=== PATIENT | female | born 1965 | race Caucasian/White ===

== ENCOUNTER 2017-04-17 07:25 | Emergency (ER) | payer BC ==
[2017-04-17] MEDS ORDERED: TORAdol 30 mg Injection IV ONE (07:52)
[2017-04-17] MEDS ORDERED: Sodium Chloride 0.9% 1000 ML 1,000 ML IV STA (07:52)
[2017-04-17] MEDS ORDERED: Reglan 10 MG/2 ML IV ONE (07:52)
[2017-04-17] MEDS ORDERED: BENADRYL 50 MG/ML IV ONE (07:52)
--- NOTE | 2017-04-17 08:09 | ERPHSYRPT ---
- History of Present Illness Time Seen by Provider: 04/17/17 07:37 Source: patient, family () Patient Subjective Stated Complaint: states VERDUZCO starting on thursday that goes across forehead. achiness. nausea and vomiting when the head starts pounding Triage Nursing Assessment: alert and oriented x 3. nauseaw and vomiting with VERDUZCO. staes sore on palpation around eyes and forehead. Physician History: CC: headache Hx: 51 y/o healthy pt of Dr Samaniego. 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 She awoke Thursday (3 days ago) with headache, nausea, myalgias. Low grade fever 100.1. Nausea with some vomiting. No stiff neck. No rash. No known tick or mosquito exposures. No diarrhea. No chest or abd pain. No N/T/W. She has tried motrin but made her stomach upset. Symptoms moderate. Timing/Duration: day(s) (3) Head Pain Location: frontal Severity of Pain-Max: moderate Severity of Pain-Current: moderate Recent Head Trauma: no recent headache/trauma Allergies/Adverse Reactions: No Known Drug Allergies Allergy (Unverified 04/17/17 07:48) Immunizations Up to Date: Yes - Review of Systems Constitutional: Fever (100.1), Fatigue, Malaise Eyes: No Vision Changes Ears, Nose, & Throat: No Symptoms Respiratory: No Cough, No Dyspnea Cardiac: No Chest Pain Abdominal/Gastrointestinal: Nausea, Vomiting, No Abdominal Pain, No Diarrhea Genitourinary Symptoms: No Dysuria Skin: No Rash Neurological: Headache, No Dizziness, No Focal Weakness, No Parasthesia, No Seizure All Other Systems: Reviewed and Negative - Past Medical History Pertinent Past Medical History: No - Past Surgical History Past Surgical History: No - Social History Smoking Status: Never smoker Drug Use: none Patient Lives Alone: No - Nursing Vital Signs Nursing Vital Signs: Initial Vital Signs Temperature 98.5 F 04/17/17 07:31 Pulse Rate 84 04/17/17 07:31 Blood Pressure 164/104 04/17/17 07:31 O2 Sat by Pulse Oximetry 99 04/17/17 07:31 Pain Scale Pain Intensity 4 - Physical Exam General Appearance: alert Eye Exam: PERRL/EOMI Ears, Nose, Throat Exam: normal ENT inspection, moist mucous membranes Neck Exam: normal inspection, non-tender, supple, No meningismus, No Brudzinski , No Kernig's Respiratory Exam: normal breath sounds, lungs clear Cardiovascular Exam: regular rate/rhythm, No murmur Gastrointestinal/Abdominal Exam: soft, No tenderness, No distention Back Exam: normal inspection, normal range of motion Extremity Exam: normal inspection, normal range of motion Mental Status Exam: alert, oriented x 3, 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 Exam: normal hearing, normal speech, PERRL Motor/Sensory Exam: no motor deficit, no sensory deficit, no pronator drift Skin Exam: normal color, warm, dry, No rash SpO2 Interpretation: normal SpO2: 99 Oxygen Delivery: Room Air - Course Nursing assessment & vital signs reviewed: Yes Ordered Tests: Active Orders 24 hr Category Date Time Status IV Insertion STAT Care 04/17/17 07:52 Active CBC W DIFF Stat Lab 04/17/17 08:00 Completed CMP Stat Lab 04/17/17 08:00 Completed Erythrocyte Sedimentation Rate Stat Lab 04/17/17 08:00 Completed VENOUS BLOOD GAS Urgent Lab 04/17/17 08:00 Completed Medication Summary Discontinued Medications Generic Name Dose Route Start Last Admin Trade Name Freq PRN Reason Stop Dose Admin Diphenhydramine HCl 25 mg 04/17/17 07:52 04/17/17 08:21 Benadryl 50 Mg/Ml IV 04/17/17 07:53 25 mg STAT ONE Administration Diphenhydramine HCl Confirm 04/17/17 08:15 Benadryl 50 Mg/Ml Administered 04/17/17 08:16 Dose 50 mg .ROUTE .STK-MED ONE Sodium Chloride 1,000 mls @ 999 mls/hr 04/17/17 07:52 04/17/17 08:19 Sodium Chloride 0.9% 1000 Ml IV 04/17/17 08:52 999 mls/hr .Q1H1M STA Administration Sodium Chloride Confirm 04/17/17 08:15 Sodium Chloride 0.9% 1000 Ml Administered 04/17/17 08:16 Dose 1,000 mls @ ud .ROUTE .STK-MED ONE Ketorolac Tromethamine 30 mg 04/17/17 07:52 04/17/17 08:21 Toradol 30 Mg Injection IV 04/17/17 07:53 30 mg STAT ONE Administration Ketorolac Tromethamine Confirm 04/17/17 08:14 Toradol 30 Mg Injection Administered 04/17/17 08:15 Dose 30 mg .ROUTE .STK-MED ONE Metoclopramide HCl 10 mg 04/17/17 07:52 04/17/17 08:22 Reglan 10 Mg/2 Ml IV 04/17/17 07:53 10 mg STAT ONE Administration Metoclopramide HCl Confirm 04/17/17 08:15 Reglan 10 Mg/2 Ml Administered 04/17/17 08:16 Dose 10 mg .ROUTE .STK-MED ONE Ondansetron HCl 4 mg 04/17/17 09:07 04/17/17 09:12 Zofran 4 Mg/2 Ml Vial IV 04/17/17 09:08 4 mg STAT ONE Administration Ondansetron HCl Confirm 04/17/17 09:10 Zofran 4 Mg/2 Ml Vial Administered 04/17/17 09:11 Dose 4 mg .ROUTE .STK-MED ONE Lab/Rad Data: Laboratory Result Diagrams 04/17/17 08:00 04/17/17 08:00 Laboratory Results 04/17/17 04/17/17 04/17/17 Range/Units 08:00 08:00 08:00 WBC 8.3 (4.0-10.5) K/mm3 RBC 4.81 (4.1-5.4) M/mm3 Hgb 14.4 (12.0-16.0) gm/dl Hct 43.6 (35-47) % MCV 90.6 (78-100) fl MCH 29.9 (26-32) pg MCHC 33.0 (32-36) g/dl RDW 13.3 (11.5-14.0) % Plt Count 232 (150-450) K/mm3 MPV 10.0 H (6-9.5) fl Gran % 71.0 H (36.0-66.0) % Lymphocytes % 19.1 L (24.0-44.0) % Monocytes % 8.7 (0.0-12.0) % Eosinophils % 1.0 (0.00-5.0) % Basophils % 0.2 (0.0-0.4) % Basophils # 0.02 (0-0.4) ESR 18 (0-20) mm/hr VBG pH 7.43 H (7.32-7.42) VBG pCO2 at Pat Temp 41 L (42-55) mm/Hg VBG pO2 at Pat Temp 44 H (25-40) mm/Hg VBG HCO3 27.2 (22-28) meq/L VBG O2 Sat (Emani) 85.5 L (95-100) VBG Base Excess 2.6 H (-2.0-2.0) VBG Hemoglobin 15.0 VBG Carboxyhemoglobin 2.1 (0.0-6.9) % T HGB POC Potassium 3.7 (3.5-5.1) Sodium 133 L (136-145) mEq/L Potassium 3.6 (3.5-5.1) mEq/L Chloride 99 (98-107) mEq/L Carbon Dioxide 25.8 (21-32) mEq/L Anion Gap 11.8 (5-15) MEQ/L BUN 11 (9-20) mg/dL Creatinine 0.91 (0.55-1.30) mg/dl Estimated GFR > 60 ML/MIN Glucose 99 (70-110) MG/DL Calcium 9.6 (8.5-10.1) mg/dL Total Bilirubin 0.60 (0.2-1.0) mg/dL AST 14 L (15-37) U/L ALT 37 (12-78) U/L Alkaline Phosphatase 67 (46-116) U/L Serum Total Protein 8.3 H (6.4-8.2) gm/dL Albumin 4.0 (3.4-5.0) g/dL - Progress Progress Note: 04/17/17 08:10 Possibly viral syndrome. Not toxic appearing. Will check basic labs and treat headache. CT does not seem indicated at this time and pt and agree. 04/17/17 09:18 The headache is better. Still some nausea. Will release with instructions. Advised she have Na and BP rechecked. Counseled pt/family regarding: lab results, diagnosis, need for follow-up - Departure Time of Disposition: 09:19 Departure Disposition: Home Clinical Impression: Hyponatremia Headache Qualifiers: Headache type: unspecified Headache chronicity pattern: acute headache Intractability: not intractable Qualified Code(s): R51 - Headache Condition: Stable Critical Care Time: No Referrals: JENNIFER SAMANIEGO [Primary Care Provider] - Instructions: Headache Additional Instructions: HEADACHE 1. After discharge from the emergency department, you should rest at home in a cool, dark, quiet place for 12-24 hours. 2. If any of the following signs or symptoms are noticed, you should be re- evaluated right away: A. Visual changes B. Stiff Neck C. Change in quality or location of pain D. Fever E. Recurrent vomiting 3. If pain medications were prescribed or given, they may cause drowsiness. See Dr Samaniego Thursday 12:00. Return for confusion, rash, stiff neck, recurrent vomiting or concerns. Ibuprofen as directed if needed. Rx zofran for nausea. No driving today and stay with family. Prescriptions: Ondansetron [Zofran Odt] 4 mg PO Q6HPRN PRN #10 tab.rapdis PRN Reason: Nausea/Vomiting
[2017-04-17 08:12] LABS: BASOPHIL % 0.2 % (0.0-0.4); Lymphocytes % 19.1 % (24.0-44.0); Mean Cell Volume 90.6 fl (78-100); Mean Corpuscular Hemoglobin 29.9 pg (26-32); Monocytes % 8.7 % (0.0-12.0); Platelet Count 232 K/mm3 (150-450); Red Blood Count 4.81 M/mm3 (4.1-5.4); Red Cell Distribution Width 13.3 % (11.5-14.0); White Blood Count 8.3 K/mm3 (4.0-10.5)
[2017-04-17 08:14] LABS: VBG BASE EXCESS 2.6 (-2.0-2.0); VBG CARBOXYHEMOGLOBIN 2.1 % T HGB (0.0-6.9); VBG HCO3- 27.2 meq/L (22-28); VBG O2 SATURATION 85.5 (95-100); VBG POTASSIUM 3.7 (3.5-5.1); VBG pH 7.43 (7.32-7.42)
[2017-04-17] MEDS ORDERED: TORAdol 30 mg Injection ONE (08:14)
[2017-04-17] MEDS ORDERED: BENADRYL 50 MG/ML ONE (08:15)
[2017-04-17] MEDS ORDERED: Reglan 10 MG/2 ML ONE (08:15)
[2017-04-17] MEDS ORDERED: Sodium Chloride 0.9% 1000 ML 1,000 ML ONE (08:15)
[2017-04-17 08:41] LABS: Erythrocyte Sedimentation Rate 18 mm/hr (0-20)
[2017-04-17 08:46] LABS: ALKALINE PHOSPHATASE 67 U/L (46-116); ANION GAP 11.8 MEQ/L (5-15); BLOOD UREA NITROGEN 11 mg/dL (9-20); CHLORIDE 99 mEq/L (98-107); Carbon Dioxide 25.8 mEq/L (21-32); Glucose 99 MG/DL (70-110); Potassium 3.6 mEq/L (3.5-5.1); SGOT/AST 14 U/L (15-37); SGPT/ALT 37 U/L (12-78); SODIUM 133 mEq/L (136-145); Total Protein 8.3 gm/dL (6.4-8.2)
[2017-04-17 09:05] VITALS: BP 163/96; PULSE 73
[2017-04-17] MEDS ORDERED: Zofran 4 MG/2 ML VIAL IV ONE (09:07)
[2017-04-17] MEDS ORDERED: Zofran 4 MG/2 ML VIAL ONE (09:10)
[2017-04-17 09:24] VITALS: O2SAT 99
== END 2017-04-17 09:40 | disposition home or self-care (01) ==
LOC: ED 07:25
DX: E87.1 Hypo-osmolality and hyponatremia (principal); R51 Headache; R11.2 Nausea with vomiting, unspecified; M79.1 Myalgia; R50.9 Fever, unspecified; R53.83 Other fatigue
CPT/HCPCS: 36000; 36415; 80053; 82805; 85025; 85652; 96360; 96374; 96375; 99284; J1200; J1885; J2405

== ENCOUNTER 2017-04-18 15:03 | Emergency (ER) | payer BC ==
[2017-04-18] MEDS ORDERED: BENADRYL 50 MG/ML IV ONE (15:29)
[2017-04-18] MEDS ORDERED: Reglan 10 MG/2 ML IV ONE (15:29)
[2017-04-18] MEDS ORDERED: Sodium Chloride 0.9% 1000 ML 1,000 ML IV STA (15:29)
[2017-04-18] MEDS ORDERED: TORAdol 30 mg Injection IV ONE (15:29)
[2017-04-18] MEDS ORDERED: TORAdol 30 mg Injection ONE (15:38)
[2017-04-18] MEDS ORDERED: Sodium Chloride 0.9% 1000 ML 1,000 ML ONE (15:38)
[2017-04-18] MEDS ORDERED: Reglan 10 MG/2 ML ONE (15:38)
[2017-04-18] MEDS ORDERED: BENADRYL 50 MG/ML ONE (15:38)
--- NOTE | 2017-04-18 15:39 | ERPHSYRPT ---
- History of Present Illness Time Seen by Provider: 04/18/17 15:06 Source: patient, family () Patient Subjective Stated Complaint: started last night at 1900. usually gets worse at night.. pain across forehead. woke her up from sleep last night. nausea but no vomiting. pain lwevel last night @10 last nighgt. now at 3-4 pain increases when turning head either direction Triage Nursing Assessment: alert and oriented. stable ambulation. pain across forhead. no nausea at present. able to eat breakfast. 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 She was in ER yesterday. Throbbing in nature. Low grade fever 100 once. Highest since yest was 99. She has had some chills. No neck pain or stiffness. Was better yesterday after meds in ER. In the evening the headache returned. It is frontal. No sore throat but was exposed to strep. No rash. No V/D. Severity of Pain-Max: severe Severity of Pain-Current: moderate Allergies/Adverse Reactions: No Known Drug Allergies Allergy (Unverified 04/17/17 07:48) Hx Influenza Vaccination/Date Given: No Hx Pneumococcal Vaccination/Date Given: No - Review of Systems Constitutional: Fever (100), Chills, Fatigue, Malaise, Weakness Eyes: No Vision Changes Ears, Nose, & Throat: No Symptoms, No Throat Pain Respiratory: No Cough, No Dyspnea Cardiac: No Chest Pain Abdominal/Gastrointestinal: No Abdominal Pain, No Vomiting, No Diarrhea Genitourinary Symptoms: No Dysuria Musculoskeletal: No Back Pain, No Neck Pain, No Fall, No Injury, No Joint Pain Skin: No Rash Neurological: Headache, No Focal Weakness, No Gait Changes, No Parasthesia All Other Systems: Reviewed and Negative - Past Medical History Pertinent Past Medical History: Yes Neurological History: No Pertinent History ENT History: No Pertinent History Endocrine Medical History: No Pertinent History GI Medical History: Esophageal Disorder - Past Surgical History Past Surgical History: Yes Female Surgical History: Tubal Ligation - Social History Smoking Status: Never smoker Exposure to second hand smoke: No Drug Use: none Patient Lives Alone: No - Nursing Vital Signs Nursing Vital Signs: Initial Vital Signs Temperature 97.9 F 04/18/17 15:09 Pulse Rate 79 04/18/17 15:09 Respiratory Rate 18 04/18/17 15:09 Blood Pressure 164/100 04/18/17 15:09 O2 Sat by Pulse Oximetry 98 04/18/17 15:09 Pain Scale Pain Intensity 0 - Physical Exam General Appearance: alert Eye Exam: PERRL/EOMI Ears, Nose, Throat Exam: moist mucous membranes Neck Exam: normal inspection, non-tender, supple, No meningismus Respiratory Exam: normal breath sounds, lungs clear Cardiovascular Exam: regular rate/rhythm Gastrointestinal/Abdominal Exam: soft, No tenderness, No distention Back Exam: normal inspection, normal range of motion Extremity Exam: normal inspection, normal range of motion Mental Status Exam: alert, oriented x 3, cooperative, other (smiling and conversant) Coordination/Gait Exam: normal gait Motor/Sensory Exam: no motor deficit, no sensory deficit Skin Exam: normal color, warm, dry, No rash SpO2 Interpretation: normal SpO2: 98 Oxygen Delivery: Room Air - Course Nursing assessment & vital signs reviewed: Yes - CT Exams head CT Interpretation: Negative, Tele-radiologist Report Ordered Tests: Active Orders 24 hr Category Date Time Status IV Insertion STAT Care 04/18/17 15:29 Active HEAD WITHOUT CONTRAST [CT] Stat Exams 04/18/17 15:30 Taken BMP Stat Lab 04/18/17 16:06 Completed CBC W DIFF Stat Lab 04/18/17 16:06 Completed Medication Summary Discontinued Medications Generic Name Dose Route Start Last Admin Trade Name Titusq PRN Reason Stop Dose Admin Dexamethasone Sodium Phosphate 10 mg 04/18/17 17:00 04/18/17 17:05 Decadron 10mg Inj. IV 04/18/17 17:01 10 mg STAT ONE Administration Dexamethasone Sodium Phosphate Confirm 04/18/17 17:04 Decadron 10mg Inj. Administered 04/18/17 17:05 Dose 10 mg .ROUTE .STK-MED ONE Diphenhydramine HCl 25 mg 04/18/17 15:29 04/18/17 15:55 Benadryl 50 Mg/Ml IV 04/18/17 15:30 25 mg STAT ONE Administration Diphenhydramine HCl Confirm 04/18/17 15:38 Benadryl 50 Mg/Ml Administered 04/18/17 15:39 Dose 50 mg .ROUTE .STK-MED ONE Sodium Chloride 1,000 mls @ 999 mls/hr 04/18/17 15:29 04/18/17 15:55 Sodium Chloride 0.9% 1000 Ml IV 04/18/17 16:29 999 mls/hr .Q1H1M STA Administration Sodium Chloride Confirm 04/18/17 15:38 Sodium Chloride 0.9% 1000 Ml Administered 04/18/17 15:39 Dose 1,000 mls @ ud .ROUTE .STK-MED ONE Ketorolac Tromethamine 30 mg 04/18/17 15:29 04/18/17 15:55 Toradol 30 Mg Injection IV 04/18/17 15:30 30 mg STAT ONE Administration Ketorolac Tromethamine Confirm 04/18/17 15:38 Toradol 30 Mg Injection Administered 04/18/17 15:39 Dose 30 mg .ROUTE .STK-MED ONE Metoclopramide HCl 10 mg 04/18/17 15:29 04/18/17 15:55 Reglan 10 Mg/2 Ml IV 04/18/17 15:30 10 mg STAT ONE Administration Metoclopramide HCl Confirm 04/18/17 15:38 Reglan 10 Mg/2 Ml Administered 04/18/17 15:39 Dose 10 mg .ROUTE .STK-MED ONE Lab/Rad Data: Laboratory Result Diagrams 04/18/17 16:06 04/18/17 16:06 Laboratory Results 04/18/17 04/18/17 Range/Units 16:06 16:06 WBC 8.3 (4.0-10.5) K/mm3 RBC 4.72 (4.1-5.4) M/mm3 Hgb 14.1 (12.0-16.0) gm/dl Hct 43.1 (35-47) % MCV 91.3 (78-100) fl MCH 29.9 (26-32) pg MCHC 32.7 (32-36) g/dl RDW 13.3 (11.5-14.0) % Plt Count 233 (150-450) K/mm3 MPV 10.0 H (6-9.5) fl Gran % 75.3 H (36.0-66.0) % Lymphocytes % 14.8 L (24.0-44.0) % Monocytes % 8.3 (0.0-12.0) % Eosinophils % 1.2 (0.00-5.0) % Basophils % 0.4 (0.0-0.4) % Basophils # 0.03 (0-0.4) Sodium 138 (136-145) mEq/L Potassium 3.5 (3.5-5.1) mEq/L Chloride 99 (98-107) mEq/L Carbon Dioxide 29.6 (21-32) mEq/L Anion Gap 12.7 (5-15) MEQ/L BUN 11 (9-20) mg/dL Creatinine 1.09 (0.55-1.30) mg/dl Estimated GFR 56 ML/MIN Glucose 110 (70-110) MG/DL Calcium 9.4 (8.5-10.1) mg/dL - Progress Progress Note: 04/18/17 17:31 She is improved with meds. Nontoxic appearing. Afebrile without nuchal rigidity. Dr Samaniego saw pt in ER. Will release with Rx for reglan. Instr given. Counseled pt/family regarding: lab results, diagnosis, need for follow-up, rad results - Departure Time of Disposition: 17:33 Departure Disposition: Home Clinical Impression: Headache Condition: Stable Critical Care Time: No Referrals: JENNIFER SAMANIEGO [Primary Care Provider] - Instructions: Headache Additional Instructions: HEADACHE 1. After discharge from the emergency department, you should rest at home in a cool, dark, quiet place for 12-24 hours. 2. If any of the following signs or symptoms are noticed, you should be re- evaluated right away: A. Visual changes B. Stiff Neck C. Change in quality or location of pain D. Fever E. Recurrent vomiting 3. If pain medications were prescribed or given, they may cause drowsiness. Rx reglan if needed for headache/nasusea- take with a benadryl tablet. Call Dr Samaniego for problems or concerns. No driving and stay with family. Prescriptions: Metoclopramide HCl 10 mg [Reglan 10 MG] 10 mg PO Q6HPRN PRN #5 tablet PRN Reason: headache/nausea
[2017-04-18 16:12] LABS: BASOPHIL % 0.4 % (0.0-0.4); Eosinophil % 1.2 % (0.00-5.0); Granulocytes % 75.3 % (36.0-66.0); Lymphocytes % 14.8 % (24.0-44.0); Mean Cell Volume 91.3 fl (78-100); Mean Corpuscular Hemoglobin 29.9 pg (26-32); Monocytes % 8.3 % (0.0-12.0); Platelet Count 233 K/mm3 (150-450); Red Blood Count 4.72 M/mm3 (4.1-5.4); Red Cell Distribution Width 13.3 % (11.5-14.0); White Blood Count 8.3 K/mm3 (4.0-10.5)
[2017-04-18 16:24] LABS: ANION GAP 12.7 MEQ/L (5-15); Carbon Dioxide 29.6 mEq/L (21-32); Potassium 3.5 mEq/L (3.5-5.1)
[2017-04-18] MEDS ORDERED: DECADRON 10MG INJ. IV ONE (17:00)
[2017-04-18] MEDS ORDERED: DECADRON 10MG INJ. ONE (17:04)
[2017-04-18 17:47] VITALS: BP 138/80; PULSE 78; O2SAT 99
--- NOTE | 2017-04-18 22:33 | XRAY ---
Indication: Headache, vomiting, and low-grade fever. Multiple contiguous axial images obtained through the head without contrast. Comparison: None Normal appearing brain parenchyma, ventricles, and bony calvarium. Visualized paranasal sinuses and mastoid air cells are clear. Impression: Normal CT head without contrast exam. Comment: Preliminary interpretation was made by [facility]. No discrepancy. CTDI 68.51
== END 2017-04-18 17:47 | disposition home or self-care (01) ==
LOC: ED 15:03
DX: R51 Headache (principal)
CPT/HCPCS: 36000; 36415; 70450; 80048; 85025; 96360; 96374; 96375; 99284; J1100; J1200; J1885

== ENCOUNTER 2017-09-23 06:05 | Day surgery (SDC) | payer BC ==
[2017-09-23] MEDS ORDERED: DIPRIVAN 200 MG/20 ML IV ONE (06:06)
[2017-09-23] MEDS ORDERED: Versed 2 MG/2 ML Injection IV ONE ×2 (06:06→06:53)
[2017-09-23] MEDS ORDERED: Lactated Ringers 1,000 ML IV SCH (06:30)
[2017-09-23 09:25] VITALS: O2SAT 99
[2017-09-23 09:44] VITALS: BP 137/96; PULSE 61
--- NOTE | 2017-09-23 12:40 | OP ---
SURGERY DATE/TIME: 09/23/2017826 PREOPERATIVE DIAGNOSIS: Screening colonoscopy. POSTOPERATIVE DIAGNOSIS: Descending colon polyp. PROCEDURE: Colonoscopy. SURGEON: Schuyler Lyle M.D. ANESTHESIA: MAC by Adama Ellis CRNA. SPECIMENS: Hot forceps polypectomy from descending colon. ESTIMATED BLOOD LOSS: Minimal. DESCRIPTION OF PROCEDURE: After informed written consent was obtained, the patient was taken to the endoscopy suite. She underwent monitored anesthesia and a digital rectal exam showed normal sphincter tone and no internal lesions. The scope was inserted into the rectum and sequentially the entire colonic mucosa was traversed. The level of cecum was reached and verified with direct visualization of ileocecal valve. Upon withdrawal careful mucosal inspection revealed no abnormalities until I reached the level of the descending colon near the splenic flexure. There was a small sessile polyp grasped with forceps and cautery used to cauterize the base. The entire lesion was removed with good hemostasis. Upon further withdrawal no other abnormalities were noted. Prior to withdrawal retroflexion was performed and showed mild internal lesions. The scope was removed and the patient was transferred to the recovery room in excellent condition.
== END 2017-09-23 10:15 | disposition home or self-care (01) ==
LOC: SDC 06:05
PROVIDERS: ATTEND Family Medicine
PROC: 0DBM8ZX Excision of Descending Colon, Via Natural or Artificial Opening Endoscopic, Diagnostic (ICD-10-PCS; principal; 2017-09-23)
DX: Z12.11 Encounter for screening for malignant neoplasm of colon (principal); K63.5 Polyp of colon
CPT/HCPCS: 00812; 88305; J2250; J2704

== ENCOUNTER 2022-05-16 11:50 | Emergency (ER) | payer OTHER ==
--- NOTE | 2022-05-16 12:01 | ERPHSYRPT ---
- History of Present Illness Time Seen by Provider: 05/16/22 11:57 Historian: patient Physician History: Patient is a 56-year-old female who presents with a complaint of pain which starts at the back of the neck at the base and radiates into the right arm into the anterior chest and into the back. This started approximately 10 days ago she did go to [facility] [place] and was told she had a pinched nerve in her neck. She had orders for numerous imaging studies but her pain seem w orse today and she called her primary care and told them she was coming to the ER for treatment. Timing/Duration: day(s) (10) Activities at Onset: none Quality: stabbing, throbbing Location: substernal Chest Pain Radiation: neck, arm, back Severity of Pain-Max: severe Severity of Pain-Current: moderate Modifying Factors: Improves With: movement Associated Symptoms: hurts to breathe Prior Chest Pain/Cardiac Workup: no prior cardiac workup Nitro Today/Relief: no nitro taken today Aspirin Treatment Today: no aspirin today Allergies/Adverse Reactions: No Known Drug Allergies Allergy (Verified 09/23/17 07:02) Home Medications: Acetaminophen [Tylenol Extra Strength] 500 mg PO UD PRN 08/18/17 [History] Hx Influenza Vaccination/Date Given: No Hx Pneumococcal Vaccination/Date Given: No - Review of Systems Constitutional: No Fever, No Chills Eyes: No Symptoms Ears, Nose, & Throat: No Symptoms Respiratory: No Cough, No Dyspnea Cardiac: Chest Pain, No Edema, No Syncope Abdominal/Gastrointestinal: No Abdominal Pain, No Nausea, No Vomiting, No Diarrhea Genitourinary Symptoms: No Dysuria Musculoskeletal: Back Pain, Neck Pain, Joint Pain Skin: No Rash Neurological: No Dizziness, No Focal Weakness, No Sensory Changes Psychological: No Symptoms Endocrine: No Symptoms All Other Systems: Reviewed and Negative - Past Medical History Pertinent Past Medical History: Yes Neurological History: No Pertinent History ENT History: No Pertinent History Cardiac History: No Pertinent History Respiratory History: No Pertinent History Endocrine Medical History: No Pertinent History Musculoskeletal History: No Pertinent History GI Medical History: Hernia History: No Pertinent History Psycho-Social History: No Pertinent History Female Reproductive Disorders: No Pertinent History - Past Surgical History Past Surgical History: Yes Neuro Surgical History: No Pertinent History Cardiac: No Pertinent History Respiratory: No Pertinent History Gastrointestinal: No Pertinent History Genitourinary: No Pertinent History Musculoskeletal: No Pertinent History Female Surgical History: Tubal Ligation Other Surgical History: hx of EGD with dilatation - Social History Smoking Status: Former smoker Exposure to second hand smoke: No Drug Use: none Patient Lives Alone: No - Nursing Vital Signs Nursing Vital Signs: Initial Vital Signs Temperature 97.9 F 05/16/22 11:54 Pulse Rate 89 05/16/22 11:54 Respiratory Rate 18 05/16/22 11:54 Blood Pressure 174/136 05/16/22 11:54 Pain Scale Pain Intensity 0 - Physical Exam General Appearance: moderate distress, alert Eye Exam: PERRL/EOMI, eyes nml inspection Ears, Nose, Throat Exam: normal ENT inspection, moist mucous membranes Neck Exam: normal inspection, non-tender, supple, full range of motion Respiratory Exam: normal breath sounds, chest tenderness, lungs clear, No respiratory distress Cardiovascular Exam: regular rate/rhythm, normal heart sounds Gastrointestinal/Abdomen Exam: soft, No tenderness, No mass Back Exam: normal inspection, No CVA tenderness, No vertebral tenderness Extremity Exam: normal inspection, normal range of motion Neurologic Exam: alert, oriented x 3, cooperative, normal mood/affect, sensation nml, No motor deficits Skin Exam: normal color, warm, dry SpO2 Interpretation: normal SpO2: 99 O2 Delivery: Room Air - Course Nursing assessment & vital signs reviewed: Yes EKG Interpreted by Me: RATE (72), Sinus Rhythm, NORMAL AXIS, Right Bundle Branch Block, Non-specific ST Changes - CT Exams Cervical Spine CT Interpretation: Other (Degenerative changes at C5-6.) Chest CT Interpretation: Other (CT of the chest with contrast essentially negative) Ordered Tests: Active Orders 24 hr Category Date Time Status Can Operator STAT Care 05/16/22 12:05 Active EKG-ER Only STAT Care 05/16/22 12:04 Active IV Insertion STAT Care 05/16/22 12:04 Active CERVICAL SPINE WO CONTRAST [CT] Stat Exams 05/16/22 12:04 Completed CHEST WITH CONTRAST [CT] Stat Exams 05/16/22 12:03 Completed CBC W DIFF Stat Lab 05/16/22 12:00 Completed CK-Creatinine Phosphokinase Stat Lab 05/16/22 12:00 Completed CMP Stat Lab 05/16/22 12:00 Completed D-DIMER QUANTITATIVE Stat Lab 05/16/22 12:00 Completed NT PRO BNP Stat Lab 05/16/22 12:00 Completed PROTIME WITH INR Stat Lab 05/16/22 12:00 Completed PTT Stat Lab 05/16/22 12:00 Completed TROPONIN Q4H Lab 05/16/22 12:00 Completed TROPONIN Q4H Lab 05/16/22 16:15 Ordered TROPONIN Q4H Lab 05/16/22 20:15 Ordered Medication Summary Discontinued Medications Generic Name Dose Route Start Last Admin Trade Name Sarita PRN Reason Stop Dose Admin Fentanyl Citrate 75 mcg 05/16/22 12:04 05/16/22 12:36 Fentanyl Citrate 100 Mcg/2 Ml* Vial IV 05/16/22 12:05 75 mcg STAT ONE Administration Fentanyl Citrate Confirm 05/16/22 12:22 Fentanyl Citrate 100 Mcg/2 Ml* Vial Administered 05/16/22 12:23 Dose 100 mcg .ROUTE .STK-MED ONE Sodium Chloride 1,000 mls @ 999 mls/hr 05/16/22 12:04 05/16/22 13:38 Sodium Chloride 0.9% 1000 Ml IV 05/16/22 13:04 Infused .Q1H1M STA Infusion Sodium Chloride Confirm 05/16/22 12:22 Sodium Chloride 0.9% 1000 Ml Administered 05/16/22 12:23 Dose 1,000 mls @ ud .ROUTE .STK-MED ONE Ondansetron HCl 4 mg 05/16/22 12:04 05/16/22 12:33 Ondansetron Hcl 4 Mg/2 Ml Vial IV 05/16/22 12:05 4 mg STAT ONE Administration Ondansetron HCl Confirm 05/16/22 12:22 Ondansetron Hcl 4 Mg/2 Ml Vial Administered 05/16/22 12:23 Dose 4 mg .ROUTE .STK-MED ONE Lab/Rad Data: Laboratory Result Diagrams 05/16/22 12:00 05/16/22 12:00 Laboratory Results 05/16/22 05/16/22 05/16/22 Range/Units 12:00 12:00 12:00 WBC (4.0-10.5) x10^3/uL RBC (4.1-5.4) x10^6/uL Hgb (12.0-16.0) g/dL Hct (35-47) % MCV (78-100) fL MCH (26-32) pg MCHC (32-36) g/dL RDW (11.5-14.0) % Plt Count (150-450) x10^3/uL MPV (7.5-11.0) fL Gran % (36.0-66.0) % Immature Gran % (Auto) (0.00-0.4) % Nucleat RBC Rel Count (0.00-0.1) % Eos # (Auto) (0-0.5) x10^3/uL Immature Gran # (Auto) (0.00-0.03) x10^3u/L Absolute Lymphs (auto) (1.0-4.6) x10^3/uL Absolute Monos (auto) (0.0-1.3) x10^3/uL Absolute Nucleated RBC (0.00-0.01) x10^3u/L Lymphocytes % (24.0-44.0) % Monocytes % (0.0-12.0) % Eosinophils % (0.00-5.0) % Basophils % (0.0-0.4) % Absolute Granulocytes (1.4-6.9) x10^3/uL Basophils # (0-0.4) x10^3/uL PT 10.9 (9.4-12.5) SECONDS INR 1.03 (0.8-3.0) APTT 27.6 (25.1-36.5) SECONDS D-Dimer 0.38 (0.0-0.50) mg/L Sodium 139 (137-145) mmol/L Potassium 4.2 (3.5-5.1) mmol/L Chloride 102 (98-107) mmol/L Carbon Dioxide 24 (22-30) mmol/L Anion Gap 17.8 H (5-15) MEQ/L BUN 13 (7-17) mg/dL Creatinine 0.62 (0.52-1.04) mg/dL Estimated GFR > 60.0 ML/MIN Glucose 99 (74-106) mg/dL Calcium 9.4 (8.4-10.2) mg/dL Total Bilirubin 0.70 (0.2-1.3) mg/dL AST 31 (14-36) U/L ALT 31 (0-35) U/L Alkaline Phosphatase 70 (38-126) U/L Creatine Kinase 298 H (30-135) U/L Troponin I 0.013 (0.000-0.034) ng/mL NT-Pro-B Natriuret Pep 26.6 (0-900) pg/mL Serum Total Protein 9.1 H (6.3-8.2) g/dL Albumin 4.9 (3.5-5.0) g/dL 05/16/22 Range/Units 12:00 WBC 10.4 (4.0-10.5) x10^3/uL RBC 4.85 (4.1-5.4) x10^6/uL Hgb 14.6 (12.0-16.0) g/dL Hct 45.1 (35-47) % MCV 93.0 (78-100) fL MCH 30.1 (26-32) pg MCHC 32.4 (32-36) g/dL RDW 13.1 (11.5-14.0) % Plt Count 265 (150-450) x10^3/uL MPV 10.3 (7.5-11.0) fL Gran % 71.4 H (36.0-66.0) % Immature Gran % (Auto) 0.5 H (0.00-0.4) % Nucleat RBC Rel Count 0.0 (0.00-0.1) % Eos # (Auto) 0.05 (0-0.5) x10^3/uL Immature Gran # (Auto) 0.05 H (0.00-0.03) x10^3u/L Absolute Lymphs (auto) 2.16 (1.0-4.6) x10^3/uL Absolute Monos (auto) 0.69 (0.0-1.3) x10^3/uL Absolute Nucleated RBC 0.00 (0.00-0.01) x10^3u/L Lymphocytes % 20.7 L (24.0-44.0) % Monocytes % 6.6 (0.0-12.0) % Eosinophils % 0.5 (0.00-5.0) % Basophils % 0.3 (0.0-0.4) % Absolute Granulocytes 7.43 H (1.4-6.9) x10^3/uL Basophils # 0.03 (0-0.4) x10^3/uL PT (9.4-12.5) SECONDS INR (0.8-3.0) APTT (25.1-36.5) SECONDS D-Dimer (0.0-0.50) mg/L Sodium (137-145) mmol/L Potassium (3.5-5.1) mmol/L Chloride (98-107) mmol/L Carbon Dioxide (22-30) mmol/L Anion Gap (5-15) MEQ/L BUN (7-17) mg/dL Creatinine (0.52-1.04) mg/dL Estimated GFR ML/MIN Glucose (74-106) mg/dL Calcium (8.4-10.2) mg/dL Total Bilirubin (0.2-1.3) mg/dL AST (14-36) U/L ALT (0-35) U/L Alkaline Phosphatase (38-126) U/L Creatine Kinase (30-135) U/L Troponin I (0.000-0.034) ng/mL NT-Pro-B Natriuret Pep (0-900) pg/mL Serum Total Protein (6.3-8.2) g/dL Albumin (3.5-5.0) g/dL - Progress Progress: improved Air Movement: good Blood Culture(s) Obtained: No Antibiotics given: No - Departure Departure Disposition: Home Clinical Impression: Cervical radiculopathy at C5 Condition: Stable Critical Care Time: No Referrals: JENNIFER VILLARREAL [Primary Care Provider] - Follow up/PCP as directed Instructions: Radiculopathy (DC) Prescriptions: Hydrocodone/Acetaminophen [Hydrocodone-Acetamin 5-325 mg] 1 tab PO Q6HPRN PRN 3 Days #12 tablet MDD 4 PRN Reason: Pain
[2022-05-16] MEDS ORDERED: SUBLIMAZE 100 MCG/2 ML IV ONE (12:04)
[2022-05-16] MEDS ORDERED: Sodium Chloride 0.9% 1000 ML 1,000 ML IV STA (12:04)
[2022-05-16] MEDS ORDERED: Zofran 4 MG/2 ML VIAL IV ONE (12:04)
[2022-05-16] MEDS ORDERED: Zofran 4 MG/2 ML VIAL ONE (12:22)
[2022-05-16] MEDS ORDERED: Sodium Chloride 0.9% 1000 ML 1,000 ML ONE (12:22)
[2022-05-16] MEDS ORDERED: SUBLIMAZE 100 MCG/2 ML ONE (12:22)
[2022-05-16 12:43] LABS: Absolute Neutrophil Ct (ANC) 7.43 x10^3/uL (1.4-6.9); Basophil (Absolute #) 0.03 x10^3/uL (0-0.4); Eosinophil % 0.5 % (0.00-5.0); Eosinophil (Absolute #) 0.05 x10^3/uL (0-0.5); Hematocrit 45.1 % (35-47); Hemoglobin 14.6 g/dL (12.0-16.0); Lymphocyte (Absolute #) 2.16 x10^3/uL (1.0-4.6); Lymphocytes % 20.7 % (24.0-44.0); Mean Corpuscular Hemoglobin 30.1 pg (26-32); Mean Corpuscular Hgb Concent. 32.4 g/dL (32-36); Mean Platelet Volume 10.3 fL (7.5-11.0); Monocyte (Absolute #) 0.69 x10^3/uL (0.0-1.3); Monocytes % 6.6 % (0.0-12.0); Neutrophil % 71.4 % (36.0-66.0); Platelet Count 265 x10^3/uL (150-450); Red Blood Count 4.85 x10^6/uL (4.1-5.4); Red Cell Distribution Width 13.1 % (11.5-14.0); White Blood Count 10.4 x10^3/uL (4.0-10.5)
[2022-05-16 12:56] LABS: D-DIMER QUANTITATIVE 0.38 mg/L (0.0-0.50); INR 1.03 (0.8-3.0); PROTIME 10.9 SECONDS (9.4-12.5); PTT 27.6 SECONDS (25.1-36.5)
[2022-05-16 13:03] LABS: ALBUMIN 4.9 g/dL (3.5-5.0); ALKALINE PHOSPHATASE 70 U/L (38-126); ANION GAP 17.8 MEQ/L (5-15); BLOOD UREA NITROGEN 13 mg/dL (7-17); CHLORIDE 102 mmol/L (98-107); CK-Creatinine Phosphokinase 298 U/L (30-135); Calcium 9.4 mg/dL (8.4-10.2); Carbon Dioxide 24 mmol/L (22-30); Creatinine 1 0.62 mg/dL (0.52-1.04); EST GLOMERULAR FILTRATION RATE > 60.0 ML/MIN; Glucose 99 mg/dL (74-106); NT PRO BNP 26.6 pg/mL (0-900); Potassium 4.2 mmol/L (3.5-5.1); SGOT/AST 31 U/L (14-36); SGPT/ALT 31 U/L (0-35); SODIUM 139 mmol/L (137-145); Total Protein 9.1 g/dL (6.3-8.2)
[2022-05-16 14:11] VITALS: O2SAT 99
--- NOTE | 2022-05-16 14:43 | XRAY ---
Indication: Chest pain. Pulmonary embolus. Multiple contiguous axial images obtained through the chest using 100 cc Isovue 370 contrast and PE protocol. Comparison: None Good opacification of the pulmonary arteries to include the lobar and segmental branches. No pulmonary embolus. Heart not enlarged. Aorta is normal in course and caliber without aneurysm/dissection. No pathologic mediastinal/hilar lymphadenopathy. Small hiatal hernia. Lungs demonstrates minimal bilateral dependent atelectasis, left base subsegmental atelectasis/scarring, and small left base calcified granuloma. No suspicious pulmonary mass, infiltrate, effusion, or pneumothorax. Bony thorax intact with mild/moderate degenerative changes throughout the spine. Limited upper abdomen demonstrates mild diffuse fatty liver and 1.5 cm left renal cyst. Impression: 1. Negative pulmonary embolus. No acute cardiopulmonary abnormalities. 2. Incidental small hiatal hernia, degenerative spondylosis, fatty liver, and left renal cyst. 3. Remaining CT chest with contrast exam is negative.
--- NOTE | 2022-05-16 14:46 | XRAY ---
Indication: Neck pain. Multiple contiguous axial images obtained through the cervical spine. Sagittal and coronal reformatted images obtained. Comparison: None Axial images negative for acute fracture, suspicious bone lesions, or spinal canal stenosis. Minimal C5-C6 degenerative endplate spurring. Facets are symmetric. Sagittal and coronal reformatted images demonstrates normal alignment. Minimal C5-C6 disc space narrowing. No acute compression fracture, subluxation, or jumped facet. Normal appearing craniocervical junction. Visualized noncontrasted soft tissues including base of brain unremarkable. CT chest reported separately. Impression: C5-C6 degenerative changes. Remaining CT cervical spine is negative.
[2022-05-16 15:04] VITALS: BP 156/87; PULSE 89
== END 2022-05-16 15:11 | disposition home or self-care (01) ==
LOC: ED 11:50
DX: M54.12 Radiculopathy, cervical region (principal); R07.89 Other chest pain; M54.2 Cervicalgia; Z79.891 Long term (current) use of opiate analgesic
CPT/HCPCS: 36000; 36415; 71260; 72125; 80053; 82550; 83880; 84484; 85025; 85379; 85610; 85730; 93005; 93041; 96360; 96374; 96375; 99284; J2405; J3010